=== PATIENT | male | born 1955 | race Caucasian/White ===

== ENCOUNTER 2016-11-21 12:42 | Day surgery (SDC) | payer OTHER ==
[~2016-11-21] VITALS: Ht 172.7 cm; Wt 187.3 kg
[~2016-11-21 12:42] MED LIST: ALBU8.5H2 INHALATION; ALFU10TA11 PO; ASPI-973 PO; ATOR20TA PO; DICL75TA6 PO; DICY20TA10 PO; FINA5TAB9 PO; GABA-502 PO; ISOS10TA8 PO; LAMO100T2 PO; LISI-567 PO; LORA5SOL82 PO; LURA60TA PO; Lactated Ringer's 1,000 ML IV ONE; METO25TA6 PO; NITR0.4T6 SL; OMEP10CA4 PO; OXYB10TA PO; TRAZ150T72 PO; [UNRECOGNIZED DRUG - OTHER]
[2016-11-21] MEDS ORDERED: Lidocaine PF 1% 30 mL Inj ONE (12:43)
[2016-11-21] MEDS ORDERED: Propofol 10,000 mCg/mL 20 mL Inj ONE (12:43)
[2016-11-21 13:24] VITALS: BP 133/87; PULSE 68; RESP 18; O2SAT 96
[2016-11-21] MEDS ORDERED: TROS20TA4 PO (13:34)
[2016-11-21] MEDS ORDERED: Lactated Ringer's 1,000 ML IV SCH (13:54)
[2016-11-21] MEDS ORDERED: MetoCLOpramide 5 mg/mL 2 mL Inj IVPUSH PRN (13:55)
[2016-11-21] MEDS ORDERED: Ondansetron 2 mg/mL 2 mL Inj IVPUSH PRN (13:55)
--- NOTE | 2016-11-21 14:11 | PCM.HPANE ---
Patient Data Date of Service: November 21, 2016 Surgeon Admitting Provider: Attending Provider:Tamera Samayoa MD Primary Care Physician:Other,Physician Other Provider:Cori Jackson Anesthesia Reason for Visit Hx Of Colon Polyps, Gerd Ht/WT & BMI Height (Feet): 5 Height (Inches): 8 Weight (Kilograms): 187.33 Body Mass Index 62.00 Allergies Coded Allergies: Sulfa (Sulfonamide Antibiotics) (Verified Allergy, Unknown, 11/20/16) ciprofloxacin (Verified Allergy, Unknown, 11/20/16) ziprasidone (Verified Allergy, Unknown, 11/20/16) Past Anesthesia History Anesthesia History: Denies:: Abnormal Airway, Anesthesia Reactions, Difficult Intubation, Fam Anesthesia Reaction, Fam Malignant Hypertherm, Malignant Hyperthermia Diabetes History Hx Diabetes?: Yes Current Bedside Blood Glucose: 97 MRSA MRSA: No Medications Blood Thinner: Aspirin Last Dose Blood Thinner: November 21, 2016 Home Meds Incl Beta Gena: Yes Date Beta Gena Taken: November 21, 2016 Time Beta Gena Taken: 0630 Reported Medications Trospium Chloride 20 Mg Azvgsn54 Mg PO BID 11/21/16 Trazodone 150 Mg Pcllty131 Mg PO HS Ref 0 11/20/16 Albuterol HFA (Proair HFA)8.5 Gm Hfa.aer.ad90 Puffs INHALATION Q4H #1 INHALER 11/20/16 Omeprazole 10 Mg Capsule.dr20 Mg PO DAILY Ref 0 11/20/16 Nitroglycerin SL 0.4 Mg Tab.subl0.4 Mg SL 11/20/16 Metoprolol Tartrate 25 Mg Pxtgho90 Mg PO BID 30 Days Ref 0 11/20/16 Loratadine 5 Mg/5 Ml (5 Ml) Oektgspc74 Mg PO 11/20/16 Lisinopril 20 Mg Mxhgyd04 Mg PO DAILY 30 Days Ref 0 11/20/16 Lurasidone (Latuda)60 Mg Ewcgek65 Mg PO 11/20/16 Lamotrigine 100 Mg Pegjam025 Mg PO DAILY Ref 0 11/20/16 [mononitrate] No Conflict Check 11/20/16 Isosorbide MN 10 Mg Jpscfb69 Mg PO DAILY 11/20/16 Gabapentin 300 Mg Hbziwds071 Mg PO BID Ref 0 11/20/16 Finasteride 5 Mg Tablet5 Mg PO DAILY 30 Days Ref 0 11/20/16 Dicyclomine 20 Mg Shavix24 Mg PO QID PRN For GI Cramps Ref 0 11/20/16 Diclofenac ER 75 Mg Yiktgf31 Mg PO DAILY 11/20/16 Atorvastatin (Lipitor)20 Mg Ukwoki64 Mg PO DAILY Ref 0 11/20/16 Aspirin 81 Mg Vnwsln77 Mg PO DAILY Ref 0 11/20/16 Alfuzosin ER 10 Mg Tab.er.24h10 Mg PO DAILY 11/20/16 Discontinued Reported Medications Oxybutynin Chloride ER 10 Mg Tab.er.2410 Mg PO DAILY Ref 0 11/20/16 History History of ENT Problems?: Yes HEENT History: Positive for:: Dysphagia Denies:: Abnormal Airway Difficult Intubation Hearing Problem Denture Type: Partial- Upper Partial- Lower Teeth Condition: Missing Teeth Hx of Heart Problems?: Yes Cardiovascular History: Positive for:: Chest Pain ([facility], cardiology in [place]) Hypertension Denies:: AICD Atrial Fibrillation Pacemaker Valvular Heart Disease Hx of Respiratory Problem?: Yes Respiratory History: Positive for:: COPD Hemoptysis ([place] 2009) Pneumonia Denies:: Asthma Cough Tuberculosis Hx Neurologic Problems?: No Neurological History: Denies:: CVA Hx of GI Problems?: Yes Other GI Pertinent History: HX OF LAP BAND (2005), DMII, Hx of Problems?: No HX of Peritoneal Dialysis: No Hx Musculoskeletal Problems?: No Musculoskeletal History: Denies:: Fibromyalgia Joint Replacement Psycho Social History: Denies:: Anxiety Hx Depression Hx Surgeries?: Yes (TONSIL, VASECTOMY, R EAR, LAP BAND, R CARPAL TUNNEL) Hx Any Other Health Problems?: Yes Hx Diabetes: Yes Hx Alcohol Use: NoHx Substance Use: No Smoking Status: Former Smoker (quit 11 years ago) Have You Smoked inLast 12 mo: Yes Stop/Bang Treated for Sleep Apnea?: Yes Do You Have a CPAP Machine?: Yes (COMPLIANT WITH NIGHTLY USE) CL Risk Assessment: High Risk, =/>3 Yes Risk Assessment Category Category 1A: Patient has history of documented sleep apnea, and HAS NOT received any narcotic, sedative or anesthesia administration during this stay. Category 1B: Patient has history of documented sleep apnea, and HAS received any narcotic , sedative or anesthesia administration during this stay Category 2: Patient has SUSPECTED Obstructive Sleep Apnea, and HAS received any narcotic , sedative or anesthesia administration during this stay. Category 3: Patient has SUSPECTED Obstructive Sleep Apnea and HAS NOT received narcotic, sedative or anesthesia administration during this stay. Category 4: Outpatient in Procedural Areas with known sleep apnea or who screen positive for High Risk via the STOP/BANG questionnaire. Exam Exam Vital Signs Vital Signs Date Time Temp Pulse Resp B/P Pulse Ox O2 Delivery O2 Flow Rate FiO2 11/21/16 13:24 37.0 68 18 133/87 96 Room Air General Appearance: Alert, Oriented X3, Cooperative HEENT/AIRWAY: MP 3, Neck Movement (Thick parker), Mouth Opening (OK) Lungs: Clear to Auscultation, Normal Air Movement Heart: Regular Rate/Rhythm, Normal S1, Normal S2 Meds/Labs/Diagnostics Additional Information Spoke with cardiology office. Last seen 09/2016. [place] to have atypical chest pain with low risk of coronary disease. Decided against heart cath at that time. F/U in 1 year. Plan Impression Patient chart reviewed, patient interviewed and anesthestic plan with risks, benefits, and alternatives discussed, and informed consent obtained. NPO per Anesth. Guidelines: Yes ASA Physical Status: ASA3 Severe Disease Anesthetic Plan: MAC Bene/Risks/Altern/Consents: Yes HP Complete Prior to Induction: Yes Dung Barriga MD November 21, 2016 13:54
[2016-11-21 14:57] VITALS: BP 135/81; PULSE 16; RESP 16; O2SAT 95
[2016-11-21 15:10] VITALS: BP 133/79; PULSE 67; RESP 16; O2SAT 97
--- NOTE | 2016-11-21 15:27 | PCM.ANEP1 ---
Post Anesthesia PACU Phase 1 Assessment Date of Service: November 21, 2016 Vital Signs Vital Signs Date Time Temp Pulse Resp B/P Pulse Ox O2 Delivery O2 Flow Rate FiO2 11/21/16 15:10 67 16 133/79 97 Room Air 11/21/16 14:57 36.3 16 16 135/81 95 Room Air 11/21/16 13:24 37.0 68 18 133/87 96 Room Air Anesthetic Administered: MAC Level of Alertness: Awake, talking FRANKLIN's with Equal Strength: Yes Pain: No Nausea or Vomiting: No CV Function & Hydration Stable: Yes Airway Device: Oxygen Delivery: Room Air Lungs: Normal Air Movement PACU Phase 2 Assessment Complications: No Follow up Care: No Patient Instructions Provided: N/A Dung Barriga MD November 21, 2016 15:27
--- NOTE | 2016-11-21 15:51 | ENDO ---
[address] [address] ENDOSCOPY PROCEDURE PATIENT: QUANG SUAZO : 1955 MR#: [id number] ADMIT: 11/21/2016 JOB ID: [id number] PROCEDURE: Esophagogastroduodenoscopy. INDICATION: Gastroesophageal reflux and patient with complaints of chest pain thought to be noncardiac as per the patient. Please see Dr. Daniele Barriga's anesthesia report for details regarding ASA classification, Mallampati score, and medications. INSTRUMENT USED: [id number] PROCEDURE DETAILS: After informed consent was obtained, the patient was brought to the GI Suite, where he was placed on oxygen via nasal cannula and monitored with continuous pulse oximeter, telemetry, and blood pressure monitoring. A time-out was performed. Then, he was placed in a left lateral decubitus position and medications were administered for sedation. A bite block was placed. The standard EGD scope was then inserted through the bite block and advanced under direct visualization to second portion of the duodenum without difficulty. FINDINGS: 1. Normal appearing duodenal bulb, first and second portion. Multiple random biopsies were obtained. 2. Normal appearing pylorus. In the antrum and body of the stomach, there was erythema suggestive of mild gastritis. Multiple random biopsies were obtained. 3. Retroflexed views in the gastric body revealed changes consistent with patient's history of banding gastroplasty for weight loss. 4. The band was at approximately 45 cm. There was a small gastric pouch which extended from 42-45 cm. The squamocolumnar junction was at 42 cm. From the squamocolumnar junction arising proximally were two short tongues of salmon-colored mucosa suggestive of Preciado's. Multiple biopsies were obtained. IMPRESSION: 1. Changes consistent with banding gastroplasty. 2. Gastritis. 3. Irregular gastroesophageal junction suggestive of Preciado's. RECOMMENDATIONS: 1. Await biopsy results. 2. Continue PPI daily. 3. Reflux precautions. 4. Weight loss encouraged. COMPLICATIONS: None. ESTIMATED BLOOD LOSS: Less than 5 mL. cc: Almas Jimenez MD
--- NOTE | 2016-11-21 15:54 | ENDO ---
[address] [address] ENDOSCOPY PROCEDURE PATIENT: QUANG SUAZO : 1955 MR#: [id number] ADMIT: 11/21/2016 JOB ID: [id number] DATE OF PROCEDURE: 11/21/2016 PROCEDURE PERFORMED: Colonoscopy. INDICATION: History of colon polyps. Please see above for ASA classification, Mallampati score, and medications. INSTRUMENT USED: [id number]-180AL. PREPARATION QUALITY: Fair. PROCEDURE DETAILS: After completion of the EGD exam, the patient was turned and then a digital rectal exam was performed which was unremarkable, though limited secondary to patient's body habitus. The colonoscope was then inserted into the rectum and advanced under direct visualization to the cecum, which identified by the presence of the ileocecal valve and appendiceal orifice. Once the cecum was reached, colonoscope was withdrawn back into the rectum as the mucosa and lumen were examined. In the rectum, retroflexion was performed. Following retroflexion, remaining air in the rectum was suctioned, and procedure was completed. FINDINGS: Normal exam. IMPRESSION: Normal colonoscopy. RECOMMENDATIONS: Repeat colonoscopy in five years, sooner if symptoms should dictate. COMPLICATIONS: None. ESTIMATED BLOOD LOSS: Zero. cc: Almas Jimenez MD
--- NOTE | 2016-11-26 14:56 | PATH ---
SURGICAL PATHOLOGY Attending Physician:Randa King CASE STATUS: Signed Out PATIENT NAME: QUANG SUAZO PID: [id number] : 1955 DATE COLLECTED:11/21/2016 00:00 SPECIMEN: 1: Gastric, Biopsy 2: Esophagus, Biopsy CLINICAL HISTORY: 1). GASTRIC BIOPSY 2). GE JUNCTION BIOPSY FINAL DIAGNOSIS: 1. Gastric Biopsy: Gastric body-type mucosa with mild chronic gastritis. Negative for H. pylori organisms by H&E stain. Negative for intestinal metaplasia, dysplasia, and malignancy. Immunohistochemistry studies pending; results will be reported as an addendum. 2. GE Junction Biopsy: Squamocolumnar junctional mucosa with specialized intestinal metaplasia, consistent with Preciado' s esophagus. Some regions of intestinal metaplasia underlie squamous mucosa. Negative for dysplasia and malignancy. ICD10: K29.7 GROSS DESCRIPTION: Received are two formalin-filled containers, both labeled with the patient' s name: 1. Received in formalin, labeled with the patient' s name and "gastric", are two fragments of hu, soft tissue ranging in size from 0.1 x 0.1 x 0.1 cm to 0.2 x 0.1 x 0.1 cm. All fragments are totally submitted in cassette 1A. 2. Received in formalin, labeled with the patient' s name and "GEJ", is one fragment of hu, soft tissue measuring 0.1 x 0.1 x 0.1 cm. The fragment is totally submitted in cassette 2A. ([id number]) ICD-9 CODES: CPT CODES: 1: 69072, 61036 2: 04652 PROCEDURE/ADDENDA: Immunohistochemistry SPI Interpretation Gastric biopsy: Result: Negative for H. pylori by immunohistochemistry studies; the control tissue stained appropriately. * This test was developed and its performance characteristics determined by [email or web address]. It has not been cleared or approved by the U.S. Food and Drug Administration. The FDA has determined that such clearance or approval is not necessary. This test is used for clinical purposes. It should not be regarded as investigational or for research. Results-Comments {Not Entered} Electronically Signed Out Kasie Garcia MD Electronically Signed Out Kasie Garcia MD [facility] [address], [place] [address] Technical component performed at [facility], [address], [place], [address]
== END 2016-11-21 23:59 | disposition home or self-care (01) ==
LOC: END 12:42
PROVIDERS: ATTEND Internal Medicine Gastroenterology
DX: Z12.11 Encounter for screening for malignant neoplasm of colon (principal); Z86.010 Personal history of colon polyps; Z80.0 Family history of malignant neoplasm of digestive organs; K29.50 Unspecified chronic gastritis without bleeding; R10.30 Lower abdominal pain, unspecified; I10 Essential (primary) hypertension; R07.89 Other chest pain; K21.9 Gastro-esophageal reflux disease without esophagitis; G47.33 Obstructive sleep apnea (adult) (pediatric); E11.9 Type 2 diabetes mellitus without complications; J44.9 Chronic obstructive pulmonary disease, unspecified; E66.01 Morbid (severe) obesity due to excess calories; Z86.711 Personal history of pulmonary embolism; Z98.84 Bariatric surgery status; Z87.891 Personal history of nicotine dependence; Z68.44 Body mass index [BMI] 60.0-69.9, adult; Z79.82 Long term (current) use of aspirin
CPT/HCPCS: 43239; 88305; 88342; G0105; J7120